=== PATIENT | female | born 1940 | race Caucasian/White ===

== ENCOUNTER 2021-12-04 16:05 | Observation (INO) ==
[2021-12-04] MEDS ORDERED: Isovue-370 500 ML BOTTLE IVP ONE (18:02)
[2021-12-04] MEDS ORDERED: Nitroglycerin 0.4 MG TAB.SUBL SL ONE (18:18)
[2021-12-04 18:42] LABS: Basophils % 0.2 %; Eosinophils % 0.1 %; Hematocrit 41.4 % (35.3-44.9); Hemoglobin 13.4 g/dL (11.5-15.4); Immature Granulocytes % 0.6 % (0-4); Mean Corpuscular HGB Conc 32.4 g/dL (31.6-35.5); Mean Corpuscular Hemoglobin 29.6 pg (28.0-33.3); Mean Corpuscular Volume 91.4 fL (83.0-100.0); Mean Platelet Volume 10.6 fL (9.4-12.4); Monocytes # 0.5 K/mcL (0.0-1.3); Monocytes % 5.9 %; Neutrophils # 7.4 K/mcL (1.6-8.9); Platelet Count 222 K/mcL (140-400); Red Blood Count 4.53 M/mcL (3.82-4.97); Red Cell Distribution Width 13.8 % (11.5-14.5); Segmented Neutrophils % 82.2 %
[2021-12-04 18:48] LABS: INR 1.4; Prothrombin Time 15.8 Seconds (9.4-12.1)
[2021-12-04] MEDS ORDERED: Pregabalin 75 MG CAPSULE PO ONE (18:49)
[2021-12-04 18:51] LABS: Activated Partial Thrombo Time 38.3 Seconds (26.0-36.0)
[2021-12-04 18:58] LABS: Alanine Aminotransferase 23 Units/L (7-52); Albumin 4.1 g/dL (3.5-5.7); Albumin/Globulin Ratio 1.3 (1.1-2.2); Alkaline Phosphatase 88 Units/L (34-104); Aspartate Amino Transferase 31 Units/L (13-39); BUN/Creatinine Ratio 24 (6-26); Bilirubin,Direct 0.5 mg/dL (0.0-0.2); Bilirubin,Indirect 1.5 mg/dL (0.0-1.0); Blood Urea Nitrogen 22 mg/dL (8-23); Calcium 9.2 mg/dL (8.6-10.3); Carbon Dioxide 24 mEq/L (23-29); Chloride 105 mEq/L (98-107); Globulin 3.2 g/dL (2.4-3.5); Glucose 107 mg/dL (70-105); Magnesium 2.1 mg/dL (1.6-2.6); Osmolality,Calculated 286 (280-300); Potassium 3.6 mEq/L (3.5-5.1); Sodium 136 mEq/L (136-145); Total Protein 7.3 g/dL (6.4-8.9); eGFR For African Americans > 60 (> 60); eGFR For Non-African Americans 58 (> 60)
[2021-12-04 19:09] LABS: Troponin I 0.05 ng/mL (< 0.04)
[2021-12-04 20:47] LABS: Bilirubin,Urine Negative (Negative); Blood,Urine Small (Negative); Clarity,Urine Clear (Clear); Color,Urine Colorless (Yellow); Glucose,Urine (UA) Normal (Normal); Ketones,Urine 10 mg/dL (Negative); Leukocyte Esterase,Urine Negative (Negative); Mucus,Urine Few per lpf (None-Few); Nitrite,Urine Negative (Negative); Protein,Urine 50 mg/dL (Neg-Trace); RBC,Urine 15-30 per hpf (0-3); Specific Gravity,Urine > 1.030 (1.010-1.025); Squamous Epithelial Cell,Urine Few per hpf (None-Few); Urobilinogen,Urine Normal (Normal); WBC,Urine 0-3 per hpf (0-3)
[2021-12-04 21:54] LABS: Influenza A PCR Negative (Negative); Influenza B PCR Negative (Negative); Resp. Syncytial Virus PCR Negative (Negative)
[2021-12-04 22:09] LABS: SARS-CoV-2 by PCR (In House) Negative (Negative)
[2021-12-04] MEDS ORDERED: Furosemide 20 MG/2 ML VIAL IVP ONE (22:37)
[2021-12-04] MEDS ORDERED: Melatonin 3 MG TABLET PO PRN (22:39)
[2021-12-04] MEDS ORDERED: Acetaminophen 325 MG TABLET PO PRN (22:39)
[2021-12-04] MEDS ORDERED: Naloxone 0.4 MG/ML INJ IVP PRN (22:39)
[2021-12-04] MEDS ORDERED: Perflutren Lipid Microsphere 1.3 ML in 0.9 % Sodium Chloride 8.7 ML IVP PRN (23:00)
[2021-12-04] MEDS ORDERED: Magnesium Sulfate 1 GM/102 ML PIGGYBACK IVPB ONE (23:15)
[2021-12-05] MEDS ORDERED: *HR* Labetalol 20 MG/4 ML SYRINGE IVP ONE ×2 (00:51→06:09)
[2021-12-05] MEDS ORDERED: D5% in Water 1,000 ML IVC PRN (01:38)
[2021-12-05] MEDS ORDERED: Dextrose Gel 15 GM/37.5 ML TUBE PO PRN ×2 (01:38)
[2021-12-05] MEDS ORDERED: *HR* Dextrose 50 % in Water (Syg) 50 ML SYRINGE IVP PRN (01:38)
[2021-12-05] MEDS ORDERED: *HR* Heparin 5,000 UNIT/ML VIAL SQ SCH (06:00)
[2021-12-05 07:58] LABS: Hemoglobin 13.4 g/dL (11.5-15.4); Mean Corpuscular HGB Conc 32.7 g/dL (31.6-35.5); Mean Corpuscular Hemoglobin 29.8 pg (28.0-33.3); Mean Corpuscular Volume 91.1 fL (83.0-100.0); Mean Platelet Volume 10.7 fL (9.4-12.4); Platelet Count 215 K/mcL (140-400); Red Cell Distribution Width 13.7 % (11.5-14.5)
[2021-12-05 08:24] LABS: Alanine Aminotransferase 20 Units/L (7-52); Albumin 3.9 g/dL (3.5-5.7); Albumin/Globulin Ratio 1.2 (1.1-2.2); Alkaline Phosphatase 81 Units/L (34-104); Aspartate Amino Transferase 29 Units/L (13-39); BUN/Creatinine Ratio 22 (6-26); Bilirubin,Direct 0.5 mg/dL (0.0-0.2); Bilirubin,Indirect 1.2 mg/dL (0.0-1.0); Bilirubin,Total 1.7 mg/dL (0.3-1.0); Blood Urea Nitrogen 20 mg/dL (8-23); Carbon Dioxide 26 mEq/L (23-29); Chloride 105 mEq/L (98-107); Globulin 3.2 g/dL (2.4-3.5); Glucose 112 mg/dL (70-105); Magnesium 2.2 mg/dL (1.6-2.6); Osmolality,Calculated 289 (280-300); Phosphorous 3.6 mg/dL (2.7-4.5); Potassium 3.5 mEq/L (3.5-5.1); Sodium 138 mEq/L (136-145); Total Protein 7.1 g/dL (6.4-8.9); Troponin I 0.04 ng/mL (< 0.04); eGFR For African Americans > 60 (> 60); eGFR For Non-African Americans 60 (> 60)
[2021-12-05] MEDS ORDERED: DilTIAZem CD (24hr) 180 MG CAP.ER.24H PO SCH (09:00)
[2021-12-05] MEDS: Insulin LISPRO 300 UNITS/3 ML VIAL SUBQ SCH ×3 (09:57→17:07)
[2021-12-05] MEDS: Ondansetron 4 MG/2 ML VIAL IVP PRN (10:14)
[2021-12-05] MEDS: Metoprolol XL (24 HR) Succ 50 MG TAB.ER.24H PO SCH (11:53)
[2021-12-05] MEDS: amLODIPine 5 MG TABLET PO SCH (15:44)
[2021-12-05 16:57] LABS: Thyroid Stimulating Hormone 1.613 mcIU/mL (0.340-5.600)
[2021-12-05] MEDS: Apixaban 5 MG TABLET PO SCH (20:03)
[2021-12-05] MEDS ORDERED: Insulin LISPRO 300 UNITS/3 ML VIAL SUBQ SCH (21:00)
[2021-12-06] MEDS: Insulin LISPRO 300 UNITS/3 ML VIAL SUBQ SCH ×2 (07:40→13:10)
[2021-12-06 08:14] LABS: Basophils % 0.4 %; Eosinophils # 0.3 K/mcL (0.0-0.6); Eosinophils % 3.2 %; Immature Granulocytes % 0.7 % (0-4); Lymphocytes # 1.7 K/mcL (0.6-4.6); Lymphocytes % 20.7 %; Mean Corpuscular HGB Conc 32.5 g/dL (31.6-35.5); Mean Corpuscular Hemoglobin 30.1 pg (28.0-33.3); Mean Corpuscular Volume 92.6 fL (83.0-100.0); Mean Platelet Volume 10.6 fL (9.4-12.4); Monocytes # 0.9 K/mcL (0.0-1.3); Monocytes % 11.4 %; Neutrophils # 5.2 K/mcL (1.6-8.9); Platelet Count 208 K/mcL (140-400); Red Blood Count 4.32 M/mcL (3.82-4.97); Segmented Neutrophils % 63.6 %; White Blood Count 8.2 K/mcL (4.3-11.1)
[2021-12-06 08:34] LABS: Blood Urea Nitrogen 20 mg/dL (8-23); Calcium 8.8 mg/dL (8.6-10.3); Carbon Dioxide 29 mEq/L (23-29); Chloride 105 mEq/L (98-107); Glucose 92 mg/dL (70-105); Magnesium 2.2 mg/dL (1.6-2.6); Osmolality,Calculated 292 (280-300); Potassium 3.3 mEq/L (3.5-5.1); Sodium 140 mEq/L (136-145)
[2021-12-06 08:39] LABS: BUN/Creatinine Ratio 21 (6-26); eGFR For African Americans > 60 (> 60); eGFR For Non-African Americans 55 (> 60)
[2021-12-06] MEDS ORDERED: Furosemide 20 MG/2 ML VIAL IVP SCH (09:00)
[2021-12-06] MEDS: Metoprolol XL (24 HR) Succ 50 MG TAB.ER.24H PO SCH (09:30)
[2021-12-06] MEDS: amLODIPine 5 MG TABLET PO SCH (09:30)
[2021-12-06] MEDS: Apixaban 5 MG TABLET PO SCH (09:30)
[2021-12-06 10:10] VITALS: BP 126/66; PULSE 81; TEMP 97.5; O2SAT 95
[2021-12-06] MEDS: Ondansetron 4 MG/2 ML VIAL IVP PRN (12:32)
== END 2021-12-06 15:25 | disposition home or self-care (01) ==
LOC: EMEROOARM 16:05 → 3BNU 16:05 → INTOOBSV 22:14 → OBSVTOIN 22:14 → SUATTDRO 22:14 → 3BNU 23:51
PROVIDERS: ADMIT Internal Medicine; ATTEND Registered Nurse

== ENCOUNTER 2022-02-09 19:57 | Inpatient (IN) ==
[2022-02-10 00:41] LABS: Basophils % 0.3 %; Eosinophils % 0.3 %; Hematocrit 34.7 % (35.3-44.9); Hemoglobin 10.8 g/dL (11.5-15.4); Immature Granulocytes % 0.6 % (0-4); Lymphocytes # 0.8 K/mcL (0.6-4.6); Lymphocytes % 11.8 %; Mean Corpuscular HGB Conc 31.1 g/dL (31.6-35.5); Mean Corpuscular Hemoglobin 28.3 pg (28.0-33.3); Mean Corpuscular Volume 91.1 fL (83.0-100.0); Monocytes # 0.3 K/mcL (0.0-1.3); Monocytes % 5.2 %; Neutrophils # 5.4 K/mcL (1.6-8.9); Platelet Count 165 K/mcL (140-400); Red Blood Count 3.81 M/mcL (3.82-4.97); Red Cell Distribution Width 15.8 % (11.5-14.5); Segmented Neutrophils % 81.8 %; White Blood Count 6.6 K/mcL (4.3-11.1)
[2022-02-10 00:42] LABS: INR 1.8; Prothrombin Time 19.7 Seconds (9.4-12.1)
[2022-02-10 00:48] LABS: Albumin 3.3 g/dL (3.5-5.7); Bilirubin,Total 0.6 mg/dL (0.3-1.0); Calcium 8.1 mg/dL (8.6-10.3); Globulin 3.2 g/dL (2.4-3.5); Magnesium 1.6 mg/dL (1.6-2.6); Potassium 6.2 mEq/L (3.5-5.1); Total Protein 6.5 g/dL (6.4-8.9)
[2022-02-10] MEDS ORDERED: Naloxone 0.4 MG/ML INJ IVP PRN (01:11)
[2022-02-10] MEDS ORDERED: SODIUM ZIRCONIUM CYCLOSILICATE 5 GM POWD.PACK PO ONE (01:16)
[2022-02-10] MEDS ORDERED: *HR* Dextrose 50 % in Water (Syg) 50 ML SYRINGE IVP ONE (01:16)
[2022-02-10] MEDS ORDERED: Insulin Human Regular 10 UNIT in 0.9 % Sodium Chloride 10 ML IV ONE (01:16)
[2022-02-10] MEDS: Sodium Bicarbonate 75 MEQ in 0.45 % Sodium Chloride 1,000 ML IVC SCH ×2 (02:01→16:34)
[2022-02-10] MEDS: Apixaban 5 MG TABLET PO SCH ×3 (02:09→20:57)
[2022-02-10] MEDS ORDERED: 0.9 % Sodium Chloride 1,000 ML IV ONE (04:08)
[2022-02-10] MEDS ORDERED: Dextrose 4 GM Chewable Tablets PO PRN ×2 (04:19)
[2022-02-10] MEDS ORDERED: D5% in Water 1,000 ML IVC PRN (04:19)
[2022-02-10 04:24] LABS: Adenovirus Not Detected (Not Detect); Bordetella Pertussis Not Detected (Not Detect); Chlamydophila pneumoniae Not Detected (Not Detect); Coronavirus 229E Not Detected (Not Detect); Coronavirus HKU1 Not Detected (Not Detect); Coronavirus NL63 Not Detected (Not Detect); Coronavirus OC43 Not Detected (Not Detect); Human Metapneumovirus Not Detected (Not Detect); Human Rhinovirus/Enterovirus Not Detected (Not Detect); Influenza A Subtype 2009 H1 Not Detected (Not Detect); Influenza B Not Detected (Not Detect); Mycoplasma pneumoniae Not Detected (Not Detect); Parainfluenza Virus 1 Not Detected (Not Detect); Parainfluenza Virus 2 Not Detected (Not Detect); Parainfluenza Virus 3 Not Detected (Not Detect); Parainfluenza Virus 4 Not Detected (Not Detect); Respiratory Syncytial Virus Not Detected (Not Detect); SARS-CoV-2 Not Detected (Not Detect)
[2022-02-10] MEDS: *HR* Dextrose 50 % in Water (Syg) 50 ML SYRINGE IVP PRN (04:47)
[2022-02-10] MEDS ORDERED: Cefepime HCl 1,000 MG in 0.9 % Sodium Chloride 10 ML IVP SCH (06:00)
[2022-02-10] MEDS: Aspirin Enteric Coated 81 MG Tablet PO SCH (08:05)
[2022-02-10] MEDS ORDERED: Haloperidol Lactate 5 MG/ML VIAL IVP ONE (10:42)
[2022-02-10 13:24] LABS: Calcium 7.6 mg/dL (8.6-10.3); Potassium 5.7 mEq/L (3.5-5.1)
[2022-02-10] MEDS ORDERED: Ipratropium/Albuterol Neb 3 ML IH PRN (14:56)
[2022-02-10] MEDS ORDERED: levoFLOXacin 750 MG/150 ML 750 MG/150 ML BAG IVPB SCH (15:00)
[2022-02-10] MEDS ORDERED: levoFLOXacin 750 MG/150 ML 750 MG/150 ML BAG IVPB ONE (15:17)
[2022-02-10 15:34] LABS: Bacteria,Urine Few per hpf (None-Few); Bilirubin,Urine Negative (Negative); Blood,Urine Moderate (Negative); Clarity,Urine Turbid (Clear); Color,Urine Light-Yellow (Yellow); Glucose,Urine (UA) Normal (Normal); Ketones,Urine Negative (Negative); Leukocyte Esterase,Urine Negative (Negative); Nitrite,Urine Negative (Negative); Protein,Urine Trace mg/dL (Neg-Trace); Specific Gravity,Urine 1.012 (1.010-1.025); Urobilinogen,Urine Normal (Normal)
[2022-02-10] MEDS: Acetaminophen 325 MG TABLET PO PRN (20:57)
[2022-02-10] MEDS: Ondansetron 4 MG/2 ML VIAL IVP PRN (20:57)
[2022-02-11 07:03] LABS: Basophils % 0.5 %; Eosinophils # 0.3 K/mcL (0.0-0.6); Eosinophils % 4.6 %; Hematocrit 32.3 % (35.3-44.9); Hemoglobin 10.2 g/dL (11.5-15.4); Lymphocytes # 1.2 K/mcL (0.6-4.6); Lymphocytes % 19.4 %; Mean Corpuscular HGB Conc 31.6 g/dL (31.6-35.5); Mean Corpuscular Hemoglobin 28.3 pg (28.0-33.3); Mean Corpuscular Volume 89.5 fL (83.0-100.0); Mean Platelet Volume 10.9 fL (9.4-12.4); Monocytes # 0.5 K/mcL (0.0-1.3); Monocytes % 8.4 %; Platelet Count 162 K/mcL (140-400); Red Blood Count 3.61 M/mcL (3.82-4.97); Red Cell Distribution Width 15.9 % (11.5-14.5); Segmented Neutrophils % 66.1 %; White Blood Count 6.1 K/mcL (4.3-11.1)
[2022-02-11 07:24] LABS: Albumin 3.1 g/dL (3.5-5.7); Calcium 7.4 mg/dL (8.6-10.3); Magnesium 1.2 mg/dL (1.6-2.6); Phosphorous 4.1 mg/dL (2.7-4.5); Potassium 4.9 mEq/L (3.5-5.1); Uric Acid 8.1 mg/dL (2.3-7.6)
[2022-02-11] MEDS: Sodium Bicarbonate 75 MEQ in 0.45 % Sodium Chloride 1,000 ML IVC SCH ×3 (08:23→22:27)
[2022-02-11] MEDS: Apixaban 5 MG TABLET PO SCH ×2 (08:25→22:28)
[2022-02-11] MEDS: Cholecalciferol (D-3) 1,000 UNIT (25MCG) TABLET PO SCH (08:25)
[2022-02-11] MEDS: Aspirin Enteric Coated 81 MG Tablet PO SCH (08:30)
[2022-02-11 10:50] LABS: Adenovirus F 40/41 PCR Not detected (Not detect); Astrovirus PCR Not detected (Not detect); C.difficile Toxin A/B Gene PCR Not detected (Not detect); Campylobacter by PCR Not detected (Not detect); Cryptosporidium by PCR Not detected (Not detect); Cyclospora cayetanensis PCR Not detected (Not detect); E. coli O157 by PCR Not detected (Not detect); Entamoeba histolytica PCR Not detected (Not detect); Enteroaggregative E.coli(EAEC) Not detected (Not detect); Enteropathogenic E.coli(EPEC) Not detected (Not detect); Enterotoxigenic E.coli (ETEC) Not detected (Not detect); Giardia lamblia PCR Not detected (Not detect); Norovirus GI/GII PCR Not detected (Not detect); Plesiomonas shigelloides PCR Not detected (Not detect); Rotavirus A PCR Not detected (Not detect); Salmonella PCR Not detected (Not detect); Sapovirus PCR Not detected (Not detect); Shig/EnteroinvasiveE coli EIEC Not detected (Not detect); Shigalike tox-prod E coli STEC Not detected (Not detect); Vibrio PCR Not detected (Not detect); Vibrio cholerae PCR Not detected (Not detect); Yersinia enterocolitica PCR Not detected (Not detect)
[2022-02-11] MEDS: Acetaminophen 325 MG TABLET PO PRN (17:56)
[2022-02-11] MEDS: Melatonin 3 MG TABLET PO PRN (22:28)
[2022-02-12] MEDS: Acetaminophen 325 MG TABLET PO PRN ×3 (02:44→20:36)
[2022-02-12 07:29] LABS: Basophils # 0.1 K/mcL (0.0-0.2); Basophils % 0.7 %; Eosinophils # 0.3 K/mcL (0.0-0.6); Eosinophils % 3.6 %; Hematocrit 37.6 % (35.3-44.9); Immature Granulocytes % 1.1 % (0-4); Lymphocytes # 1.4 K/mcL (0.6-4.6); Lymphocytes % 19.3 %; Mean Corpuscular HGB Conc 31.9 g/dL (31.6-35.5); Mean Corpuscular Hemoglobin 28.7 pg (28.0-33.3); Monocytes # 0.5 K/mcL (0.0-1.3); Monocytes % 7.4 %; Neutrophils # 4.8 K/mcL (1.6-8.9); Platelet Count 187 K/mcL (140-400); Red Blood Count 4.18 M/mcL (3.82-4.97); Red Cell Distribution Width 15.6 % (11.5-14.5); Segmented Neutrophils % 67.9 %
[2022-02-12 08:20] LABS: Calcium 7.7 mg/dL (8.6-10.3); Magnesium 1.2 mg/dL (1.6-2.6); Phosphorous 3.3 mg/dL (2.7-4.5); Potassium 4.2 mEq/L (3.5-5.1)
[2022-02-12] MEDS: Cholecalciferol (D-3) 1,000 UNIT (25MCG) TABLET PO SCH (08:58)
[2022-02-12] MEDS: Apixaban 5 MG TABLET PO SCH (08:59)
[2022-02-12] MEDS: Aspirin Enteric Coated 81 MG Tablet PO SCH (09:00)
[2022-02-12] MEDS: Sodium Bicarbonate 75 MEQ in 0.45 % Sodium Chloride 1,000 ML IVC SCH (09:04)
[2022-02-12] MEDS ORDERED: Pantoprazole 40 MG VIAL IVP ONE (11:22)
[2022-02-12] MEDS ORDERED: levoFLOXacin 750 MG/150 ML 750 MG/150 ML BAG IVPB SCH (15:00)
[2022-02-12] MEDS ORDERED: levoFLOXacin 500 MG/100 ML 500 MG/100 ML BAG IVPB SCH (15:00)
[2022-02-12] MEDS: levoFLOXacin 750 MG/150 ML 750 MG/150 ML BAG IVPB SCH (16:31)
[2022-02-12 16:40] LABS: Hematocrit 38.6 % (35.3-44.9); Hemoglobin 12.1 g/dL (11.5-15.4)
[2022-02-12 16:43] LABS: Prothrombin Time 22.1 Seconds (9.4-12.1)
[2022-02-12 20:12] LABS: Hematocrit 36.4 % (35.3-44.9); Hemoglobin 11.6 g/dL (11.5-15.4)
[2022-02-13 05:04] LABS: Basophils % 0.3 %; Eosinophils # 0.4 K/mcL (0.0-0.6); Eosinophils % 3.9 %; Hemoglobin 11.6 g/dL (11.5-15.4); Immature Granulocytes % 0.8 % (0-4); Lymphocytes # 1.1 K/mcL (0.6-4.6); Lymphocytes % 11.7 %; Mean Corpuscular HGB Conc 32.2 g/dL (31.6-35.5); Mean Corpuscular Hemoglobin 28.9 pg (28.0-33.3); Mean Corpuscular Volume 89.8 fL (83.0-100.0); Mean Platelet Volume 10.7 fL (9.4-12.4); Monocytes # 0.6 K/mcL (0.0-1.3); Monocytes % 6.2 %; Neutrophils # 7.1 K/mcL (1.6-8.9); Platelet Count 162 K/mcL (140-400); Red Blood Count 4.01 M/mcL (3.82-4.97); Red Cell Distribution Width 15.6 % (11.5-14.5); Segmented Neutrophils % 77.1 %; White Blood Count 9.2 K/mcL (4.3-11.1)
[2022-02-13] MEDS: *HR* Dextrose 50 % in Water (Syg) 50 ML SYRINGE IVP PRN (05:04)
[2022-02-13 05:23] LABS: Calcium 8.2 mg/dL (8.6-10.3); Magnesium 1.8 mg/dL (1.6-2.6); Phosphorous 2.7 mg/dL (2.7-4.5); Potassium 4.4 mEq/L (3.5-5.1)
[2022-02-13] MEDS: Acetaminophen 325 MG TABLET PO PRN ×3 (06:16→19:55)
[2022-02-13] MEDS: Cholecalciferol (D-3) 1,000 UNIT (25MCG) TABLET PO SCH (08:58)
[2022-02-13] MEDS ORDERED: Pantoprazole 40 MG VIAL IVP SCH (09:00)
[2022-02-14] MEDS: Acetaminophen 325 MG TABLET PO PRN ×3 (01:02→17:43)
[2022-02-14] MEDS: Melatonin 3 MG TABLET PO PRN (01:02)
[2022-02-14 03:00] LABS: Hematocrit 41.1 % (35.3-44.9); Hemoglobin 12.8 g/dL (11.5-15.4)
[2022-02-14 03:05] LABS: Calcium 8.9 mg/dL (8.6-10.3); Magnesium 1.5 mg/dL (1.6-2.6); Phosphorous 2.4 mg/dL (2.7-4.5); Potassium 4.2 mEq/L (3.5-5.1)
[2022-02-14] MEDS: Cholecalciferol (D-3) 1,000 UNIT (25MCG) TABLET PO SCH (09:03)
[2022-02-14] MEDS: amLODIPine 5 MG TABLET PO SCH (09:04)
[2022-02-14] MEDS: Apixaban 5 MG TABLET PO SCH ×2 (12:41→21:09)
[2022-02-14] MEDS: Aspirin Enteric Coated 81 MG Tablet PO SCH (12:42)
[2022-02-14] MEDS: levoFLOXacin 750 MG/150 ML 750 MG/150 ML BAG IVPB SCH (17:44)
[2022-02-15] MEDS: Acetaminophen 325 MG TABLET PO PRN ×3 (00:03→17:40)
[2022-02-15 03:09] LABS: Hematocrit 39.2 % (35.3-44.9); Hemoglobin 12.6 g/dL (11.5-15.4)
[2022-02-15 03:30] LABS: Calcium 9.1 mg/dL (8.6-10.3); Magnesium 1.9 mg/dL (1.6-2.6); Phosphorous 2.3 mg/dL (2.7-4.5)
[2022-02-15] MEDS: Apixaban 5 MG TABLET PO SCH ×2 (08:59→20:38)
[2022-02-15] MEDS: Aspirin Enteric Coated 81 MG Tablet PO SCH (08:59)
[2022-02-15] MEDS: Cholecalciferol (D-3) 1,000 UNIT (25MCG) TABLET PO SCH (08:59)
[2022-02-15] MEDS: amLODIPine 5 MG TABLET PO SCH (08:59)
[2022-02-15] MEDS: Ondansetron 4 MG/2 ML VIAL IVP PRN (19:16)
[2022-02-15] MEDS ORDERED: *HR* HYDROcodone/Acet 5/325 mg TABLET PO ONE (20:43)
[2022-02-16] MEDS: Melatonin 3 MG TABLET PO PRN ×2 (00:13→20:33)
[2022-02-16] MEDS: Acetaminophen 325 MG TABLET PO PRN ×4 (00:13→20:33)
[2022-02-16 02:45] LABS: Hematocrit 42.1 % (35.3-44.9); Hemoglobin 13.5 g/dL (11.5-15.4)
[2022-02-16 06:48] LABS: BUN/Creatinine Ratio 15 (6-26); Blood Urea Nitrogen 16 mg/dL (8-23); Calcium 9.2 mg/dL (8.6-10.3); Carbon Dioxide 21 mEq/L (23-29); Chloride 115 mEq/L (98-107); Glucose 103 mg/dL (70-105); Magnesium 1.7 mg/dL (1.6-2.6); Osmolality,Calculated 289 (280-300); Phosphorous 3.1 mg/dL (2.7-4.5); Sodium 139 mEq/L (136-145); eGFR For African Americans > 60 (> 60); eGFR For Non-African Americans 50 (> 60)
[2022-02-16] MEDS: Aspirin Enteric Coated 81 MG Tablet PO SCH (08:16)
[2022-02-16] MEDS: Cholecalciferol (D-3) 1,000 UNIT (25MCG) TABLET PO SCH (08:16)
[2022-02-16] MEDS: amLODIPine 5 MG TABLET PO SCH (08:16)
[2022-02-16] MEDS: Apixaban 5 MG TABLET PO SCH ×2 (08:16→20:33)
[2022-02-16] MEDS: Furosemide 20 MG TABLET PO SCH (08:17)
[2022-02-16] MEDS: lisinopriL 20 MG TABLET PO SCH (08:17)
[2022-02-17] MEDS: Acetaminophen 325 MG TABLET PO PRN ×4 (02:17→23:44)
[2022-02-17 03:57] LABS: BUN/Creatinine Ratio 18 (6-26); Blood Urea Nitrogen 18 mg/dL (8-23); Calcium 9.2 mg/dL (8.6-10.3); Carbon Dioxide 22 mEq/L (23-29); Chloride 109 mEq/L (98-107); Glucose 100 mg/dL (70-105); Magnesium 1.6 mg/dL (1.6-2.6); Osmolality,Calculated 294 (280-300); Phosphorous 3.3 mg/dL (2.7-4.5); Potassium 3.2 mEq/L (3.5-5.1); Sodium 141 mEq/L (136-145); eGFR For African Americans > 60 (> 60); eGFR For Non-African Americans 53 (> 60)
[2022-02-17] MEDS: lisinopriL 20 MG TABLET PO SCH (09:53)
[2022-02-17] MEDS: Ondansetron 4 MG/2 ML VIAL IVP PRN (09:53)
[2022-02-17] MEDS: Furosemide 20 MG TABLET PO SCH (09:54)
[2022-02-17] MEDS: Cholecalciferol (D-3) 1,000 UNIT (25MCG) TABLET PO SCH (09:54)
[2022-02-17] MEDS: Aspirin Enteric Coated 81 MG Tablet PO SCH (09:54)
[2022-02-17] MEDS: amLODIPine 5 MG TABLET PO SCH (09:54)
[2022-02-17] MEDS: Apixaban 5 MG TABLET PO SCH ×2 (09:55→19:52)
[2022-02-17 15:49] LABS: Influenza A PCR Negative (Negative); Influenza B PCR Negative (Negative); Resp. Syncytial Virus PCR Negative (Negative)
[2022-02-17 16:20] LABS: SARS-CoV-2 by PCR (In House) Negative (Negative)
[2022-02-17] MEDS: Melatonin 3 MG TABLET PO PRN (19:52)
[2022-02-18] MEDS ORDERED: *HR* HYDROcodone/Acet 5/325 mg TABLET PO ONE (03:56)
[2022-02-18 07:18] VITALS: O2SAT 91
[2022-02-18] MEDS: lisinopriL 20 MG TABLET PO SCH (07:36)
[2022-02-18] MEDS: Apixaban 5 MG TABLET PO SCH (07:36)
[2022-02-18] MEDS: Aspirin Enteric Coated 81 MG Tablet PO SCH (07:36)
[2022-02-18] MEDS: Cholecalciferol (D-3) 1,000 UNIT (25MCG) TABLET PO SCH (07:37)
[2022-02-18] MEDS: Furosemide 20 MG TABLET PO SCH (07:38)
[2022-02-18] MEDS: amLODIPine 5 MG TABLET PO SCH (07:38)
[2022-02-18 11:18] VITALS: BP 133/63; PULSE 81; TEMP 97.1
[2022-02-18] MEDS: Acetaminophen 325 MG TABLET PO PRN (12:06)
[2022-02-18 13:20] LABS: BUN/Creatinine Ratio 20 (6-26); Blood Urea Nitrogen 18 mg/dL (8-23); Calcium 9.2 mg/dL (8.6-10.3); Carbon Dioxide 25 mEq/L (23-29); Chloride 108 mEq/L (98-107); Glucose 74 mg/dL (70-105); Osmolality,Calculated 295 (280-300); Potassium 3.5 mEq/L (3.5-5.1); Sodium 142 mEq/L (136-145); eGFR For African Americans > 60 (> 60); eGFR For Non-African Americans 60 (> 60)
== END 2022-02-18 16:40 | DRG 871 ==
LOC: 3NENU → SUATTDRO 02-10 00:33
PROVIDERS: ADMIT Internal Medicine; ATTEND Internal Medicine